=== PATIENT | female | born 1955 | race Caucasian/White ===

== ENCOUNTER 2018-09-16 13:29 | Outpatient (CLI) | payer BC ==
--- NOTE | 2018-09-16 15:15 | RAD ---
CHEST TWO VIEWS: 09/16/2018 COMPARISON: No prior films are available for comparison. FINDINGS: The heart is normal in size, and the lungs are clear. There is no sign of pneumonia or pleural effus ion. The mediastinum appears normal, and the trachea is midline. There may be a little bit of lingu lar scarring or a fat pad here. IMPRESSION: No significant findings. POS: HOME
== END 2018-09-16 13:30 | disposition home or self-care (01) ==
LOC: BURRAD 13:29
PROVIDERS: ATTEND Nurse Practitioner Family
DX: J20.9 Acute bronchitis, unspecified (principal); E78.5 Hyperlipidemia, unspecified; E55.9 Vitamin D deficiency, unspecified; R05 Cough; R60.9 Edema, unspecified; F33.1 Major depressive disorder, recurrent, moderate; I10 Essential (primary) hypertension; R53.83 Other fatigue; R53.1 Weakness
CPT/HCPCS: 71046